=== PATIENT | female | born 1990 | race Caucasian/White ===

== ENCOUNTER 2017-10-18 23:15 | Emergency (ER) | payer OTHER ==
[~2017-10-18] VITALS: Ht 160 cm; Wt 90.7 kg
[~2017-10-18 23:15] MED LIST: AMOXICILLIN250 MG PO; ZOFRAN ODT4 MG PO
[2017-10-18] MEDS ORDERED: IBUPROFEN 600 MG TAB PO STA (23:42)
[2017-10-18] MEDS ORDERED: TRAMADOL HCL 50 MG TAB PO ONE (23:45)
--- NOTE | 2017-10-19 00:42 | Diagnostic Imaging Report ---
SHOULDER RIGHT COMPLETE Comparison: None Clinical history: Shoulder pain Findings: No fracture or dislocation. Impression: No acute bony abnormality Signed by: Dr Vicky Marie MD on 10/19/2017 12:38 AM
[2017-10-19 01:12] VITALS: BP 121/80
== END 2017-10-19 01:22 | disposition home or self-care (01) ==
LOC: ER 23:15
DX: S46.811A Strain of other muscles, fascia and tendons at shoulder and upper arm level, right arm, initial encounter (principal); Y93.89 Activity, other specified
CPT/HCPCS: 99283

== ENCOUNTER 2018-02-05 20:39 | Emergency (ER) | payer OTHER ==
[~2018-02-05] VITALS: Ht 160 cm; Wt 90.7 kg
--- OUTSIDE RECORDS SUMMARY | 2018-02-05 20:41 | XMS REPORT | Clinical Summary ---
Author Author [facility] Address Unknown Phone Unavailable Care Team Providers Care Cue Selector Name Role Phone Gerardo Drew MD PCP Allergies Active Allergy Reactions Severity Noted Date Comments Latex Hives 07/13/2017 Current Medications Prescription Sig. Disp. Refills Start End Date Status Date levETIRAcetam (KEPPRA) Take 250 mg by mouth 2 Active 250 MG tablet (two) times a day. cyclobenzaprine Take 1 tablet (10 mg 21 tablet 0 01/03/20 Active (FLEXERIL) 10 mg tablet total) by mouth 3 (three) 18 times a day as needed for muscle spasms for up to 21 doses. meloxicam (MOBIC) 15 mg Take 1 tablet (15 mg 10 tablet 0 01/03/20 Active tablet total) by mouth daily as 18 needed for moderate pain for up to 10 doses. BUTALB/ACETAMINOPHEN/CAFF Take by mouth. 01/03/20 Discontin EINE (FIORICET ORAL) 18 ued butalbital-acetaminophen- Take 2 tablets by mouth 20 tablet 0 08/13/20 caff (FIORICET, ESGIC) every 8 (eight) hours as 17 17 50-325-40 mg per tablet needed for headaches for up to 30 days. Active Problems Problem Noted Date Headache 07/13/2017 Encounters Date Type Specialty Care Team Description 01/02/2018 Emergency Emergency Medicine Teddy Kong, Strain of neck muscle, PAAva initial encounter (Primary Dx); Concussion without loss of consciousness, initial encounter 07/13/2017 Emergency General Internal Medicine Simón De Guzman Chronic cluster headache, - Albert Alas MD not intractable (Primary 07/14/2017 Mar Gomez MD Dx); Savage Everett MD Headache, unspecified headache type; Episode of change in speech 07/13/2017 Procedure Pass General Internal Medicine 07/13/2017 Procedure Pass General Internal Medicine after 02/04/2017 Social History Tobacco Use Types Packs/Day Years Used Date Current Every Day Smoker Cigarettes 0.5 Smokeless Tobacco: Never Used Alcohol Use Drinks/Week oz/Week Comments No ocass Sex Assigned at Date Recorded Not on file Last Filed Vital Signs Vital Sign Reading Time Taken Blood Pressure 118/77 01/02/2018 8:19 PM CDT Pulse 82 01/02/2018 8:19 PM CDT Temperature 36.9 C (98.4 F) 01/02/2018 8:19 PM CDT Respiratory Rate 17 01/02/2018 8:19 PM CDT Oxygen Saturation 96% 01/02/2018 8:19 PM CDT Inhaled Oxygen - - Concentration Weight 113 kg (250 lb) 01/02/2018 6:54 PM CDT Height 154.9 cm (5' 1") 01/02/2018 6:54 PM CDT Body Mass Index 47.24 01/02/2018 6:54 PM CDT Plan of Treatment Date Type Specialty Care Team Description 02/11/2018 Office Visit Neurology Jenniffer Eucead MD [address] [address] Health Maintenance Due Date Last Done Comments PAP SMEAR 2012 INFLUENZA VACCINE 05/22/2018 Results * CT Cervical Spine Wo Contrast (01/02/2018 7:33 PM) Specimen Performing Laboratory [address] [address] Narrative Procedure:CT CERVICAL SPINE WO CONTRAST REFERRING PHYSICIAN:TEDDY KONG HISTORY:fall COMPARISON: None TECHNIQUE: Multiple helical axial images of the cervical spine. Additional sagittal and coronal reformat images were acquired. All CT scan performed using radiation dose reduction techniques. Technical factors are evaluated and adjusted to ensure appropriate moderation of exposure. Automated dose management technology is applied to adjust the radiation dose to minimize expose whileachieving a diagnostic quality image. FINDINGS: Sagittal evaluation of the cervical spine demonstrates normal alignment cervical vertebrae. The vertebral body heights are maintained. The intervertebral disc spaces are maintained. No articular pillar defect is seen. Prevertebral soft tissue is within normal limits. Axial evaluation of the cervical spine demonstrates no significant central canal stenosis or neuroforaminal narrowing. No fracture is seen. No evidence of paraspinal hematoma. IMPRESSION: No CT evidence acute fracture or subluxation of the cervical spine. [id number] Procedure Note Interface, Radiology Results Incoming - 01/02/2018 7:44 PM CDT Procedure:CT CERVICAL SPINE WO CONTRAST REFERRING PHYSICIAN:TEDDY KONG HISTORY:fall COMPARISON: None TECHNIQUE: Multiple helical axial images of the cervical spine. Additional sagittal and coronal reformat images were acquired. All CT scan performed using radiation dose reduction techniques. Technical factors are evaluated and adjusted to ensure appropriate moderation of exposure. Automated dose management technology is applied to adjust the radiation dose to minimize expose while achieving a diagnostic quality image. FINDINGS: Sagittal evaluation of the cervical spine demonstrates normal alignment cervical vertebrae. The vertebral body heights are maintained. The intervertebral disc spaces are maintained. No articular pillar defect is seen. Prevertebral soft tissue is within normal limits. Axial evaluation of the cervical spine demonstrates no significant central canal stenosis or neuroforaminal narrowing. No fracture is seen. No evidence of paraspinal hematoma. IMPRESSION: No CT evidence acute fracture or subluxation of the cervical spine. [id number] * CT Head Wo Contrast (01/02/2018 7:33 PM) Only the most recent of 2 results within the time period is included. Specimen Performing Laboratory [facility] [address] [place] [address] Narrative Procedure:CT HEAD WO CONTRAST REFERRING PHYSICIAN:TEDDY KONG HISTORY:fall COMPARISON: None TECHNIQUE: Axial images were obtained of the head without intravenous contrast. All CT scan performed using radiation dose reduction techniques. Technical factors are evaluated and adjusted to ensure appropriate moderation of exposure. Automated dose management technology is applied to adjust the radiation dose to minimize expose whileachieving a diagnostic quality image. FINDINGS: Beck-white matter differentiation is maintained. The ventricular system is symmetric and midline. There is no evidence of acute hemorrhage. Nointra-axial or extra-axial lesion is seen. Mild mucosal thickening of the maxillary sinus is noted. The visualized portion of the orbits, paranasal sinuses and mastoid air cells are otherwise unremarkable. The calvarium is intact. IMPRESSION: Unremarkable CT head exam with no CT evidence of acute intracranial abnormality or hemorrhage. [id number] Procedure Note [facility], Radiology Results Incoming - 01/02/2018 7:43 PM CDT Procedure:CT HEAD WO CONTRAST REFERRING PHYSICIAN:TDEDY KONG HISTORY: fall COMPARISON: None TECHNIQUE: Axial images were obtained of the head without intravenous contrast. All CT scan performed using radiation dose reduction techniques. Technical factors are evaluated and adjusted to ensure appropriate moderation of exposure. Automated dose management technology is applied to adjust the radiation dose to minimize expose while achieving a diagnostic quality image. FINDINGS: Beck-white matter differentiation is maintained. The ventricular system is symmetric and midline. There is no evidence of acute hemorrhage. No intra-axial or extra-axial lesion is seen. Mild mucosal thickening of the maxillary sinus is noted. The visualized portion of the orbits, paranasal sinuses and mastoid air cells are otherwise unremarkable. The calvarium is intact. IMPRESSION: Unremarkable CT head exam with no CT evidence of acute intracranial abnormality or hemorrhage. [id number] * hCG qualitative, urine screen (01/02/2018 7:17 PM) Only the most recent of 2 results within the time period is included. Component Value Ref Range hCG qualitative, urine Negative Negative Comment: The manufacturers stated sensitivity of HcG test for serum is >/=10 mIU/ml and urine is >/=20mIU/ml. Specimen Performing Laboratory Urine [facility] DEPARTMENT OF PATHOLOGY AND GENOMIC MEDICINE [address] [place] [address] * Estimated GFR (07/14/2017 5:55 AM) Only the most recent of 2 results within the time period is included. Component Value Ref Range GFR Non Af Amer >90 mL/min/1.73 m2 GFR Af Amer >90 mL/min/1.73 m2 Comment: Chronic kidney disease: <60 mL/min/1.73m2 Kidney failure: <15 mL/min/1.73m2 The estimated GFR is calculated from the IDMS-traceable Modification of Diet in Renal Disease Equation. The accuracy of the calculation is poor when the creatinine is normal. Calculated values >90 mL/min/1.73m2 are not reported. This equation has not been validated in children (<18 years), women, the elderly (>70 years), or ethnic groups other than Caucasians and Americans. Specimen Performing Laboratory Plasma specimen [facility]IC[facility] [address] [place] [address] * Prothrombin time with INR (07/14/2017 5:55 AM) Component Value Ref Range Prothrombin time 13.0 12.0 - 15.0 sec INR 0.98 0.92 - 1.12 Comment: For patients on anticoagulant therapy, reference ranges below: Indication: INR Value Treatment of Venous Thrombosis, 2.0-3.0 pulmonary emboli, or prophylaxis of a venous thrombosis, or systemic emboli. High dose, high risk patients 3.0-4.5 with mechanical valves. NOTE: INR values over 3.0 are sometimes associated with gastrointestinal hemorrhage, especially values over 4.0. Specimen Performing Laboratory Blood [facility] [address] [place] [address] * CBC with platelet and differential (07/14/2017 5:55 AM) Only the most recent of 2 results within the time period is included. Component Value Ref Range WBC 4.4 4.2 - 11.0 k/uL RBC 3.63 (L) 4.04 - 5.86 m/uL HGB 11.6 11.5 - 15.3 g/dL HCT 34.4 34.0 - 45.0 % MCV 94.8 80.0 - 98.0 fL MCH 32.0 27.0 - 34.0 pg MCHC 33.7 31.5 - 36.5 g/dL RDW - SD 44.8 37.0 - 51.0 fL MPV 10.7 (H) 7.4 - 10.4 fL Platelet count 225 150 - 400 k/uL Nucleated RBC 0.00 /100 WBC Neutrophils 35.0 (L) 36.0 - 66.0 % Lymphocytes 51.1 (H) 24.0 - 44.0 % Monocytes 10.0 (H) 0.0 - 6.0 % Eosinophils 3.2 0.0 - 6.0 % Basophils 0.5 0.0 - 1.2 % Immature granulocytes 0.2 0.0 - 1.0 % Specimen Performing Laboratory Blood [facility] [address] [place] [address] * Lipid panel (07/14/2017 5:55 AM) Component Value Ref Range Cholesterol 131 120 - 200 mg/dL Triglycerides 113 50 - 150 mg/dL HDL cholesterol 33 (L) 40 - 60 mg/dL LDL cholesterol 94Comment: Result obtained by direct LDL mg/dL measurement Specimen Performing Laboratory Plasma specimen [facility] [address] [place] [address] * Basic metabolic panel (07/14/2017 5:55 AM) Component Value Ref Range Sodium 140 135 - 150 mEq/L Potassium 4.0 3.5 - 5.0 mEq/L Chloride 107 100 - 109 mEq/L CO2 27 24 - 32 mmol/L Anion gap 6 (L) 7 - 15 mEq/L Comment: Starting from January , anion gap calculation no longer incorporates potassium. Please note the change. BUN 11 7 - 18 mg/dL Creatinine 0.7 (L) 0.8 - 1.5 mg/dL Glucose 93 65 - 100 mg/dL Calcium 8.7 8.6 - 10.7 mg/dL Specimen Performing Laboratory Plasma specimen [facility] [address] [place] [address] * MRA Head Wo Contrast (07/13/2017 5:17 PM) Specimen Performing Laboratory [facility] [address] [place] [address] Narrative EXAMINATION: MRA HEAD WO CONTRAST CLINICAL HISTORY: headache COMPARISON:Brain MRI dated July 13, 2017. TECHNIQUE: [id number] MRA images of the [place] vessels were obtained with multiplanar and 3-D reconstructive algorithms. FINDINGS: Normal flow related signal is detected along the visualized distal cervical, petrous, cavernous and supraclinoid segments of the internal carotid arteries, as well as along the visualized segments of the anterior and middle cerebral arteries. No discrete saccular or fusiform aneurysm formation is seen. The anterior communicating artery is visualized. Normal flow related signal is detected along the visualized distal vertebral arteries, along the basilar artery, and along the posterior cerebral arteries. The right vertebral artery is hypoplastic and the left vertebral artery is dominant. The left posterior cerebral artery has a origin, normal anatomical variant. No discrete saccular or fusiform aneurysm formation is seen. IMPRESSION: Unremarkable MRA of the [place] with no significant abnormality. [id number] Procedure Note Interface, Radiology Results Incoming - 07/13/2017 5:43 PM CDT EXAMINATION: MRA HEAD WO CONTRAST CLINICAL HISTORY: headache COMPARISON: Brain MRI dated July 13, 2017. TECHNIQUE: [id number] MRA images of the [place] vessels were obtained with multiplanar and 3-D reconstructive algorithms. FINDINGS: Normal flow related signal is detected along the visualized distal cervical, petrous, cavernous and supraclinoid segments of the internal carotid arteries, as well as along the visualized segments of the anterior and middle cerebral arteries. No discrete saccular or fusiform aneurysm formation is seen. The anterior communicating artery is visualized. Normal flow related signal is detected along the visualized distal vertebral arteries, along the basilar artery, and along the posterior cerebral arteries. The right vertebral artery is hypoplastic and the left vertebral artery is dominant. The left posterior cerebral artery has a origin, normal anatomical variant. No discrete saccular or fusiform aneurysm formation is seen. IMPRESSION: Unremarkable MRA of the [place] with no significant abnormality. [id number] * MRI Brain W Wo Contrast (07/13/2017 5:15 PM) Specimen Performing Laboratory [facility] [address] [place] [address] Narrative EXAMINATION: MRI BRAIN W WO CONTRAST CLINICAL HISTORY: headache COMPARISON:None TECHNIQUE: Multiplanar and multisequence MRI imaging of the brain was obtained with and without contrast. FINDINGS: No evidence of acute intracranial hemorhage, mass, mass effect, acute infarct or midline shift. Ventricles and sulci are normal in appearance for patient's age. No abnormal intracranial enhancement. No abnormal susceptibility. Basal cisterns are clear. Major intracranial flow voids are maintained. Orbits are normal in appearance. Visualized paranasal sinuses and mastoid air cells are clear. IMPRESSION: Normal MRI of the brain. [id number] Procedure Note Interface, Radiology Results [facility] - 07/13/2017 5:33 PM CDT EXAMINATION: MRI BRAIN W WO CONTRAST CLINICAL HISTORY: headache COMPARISON: None TECHNIQUE: Multiplanar and multisequence MRI imaging of the brain was obtained with and without contrast. FINDINGS: No evidence of acute intracranial hemorhage, mass, mass effect, acute infarct or midline shift. Ventricles and sulci are normal in appearance for patient's age. No abnormal intracranial enhancement. No abnormal susceptibility. Basal cisterns are clear. Major intracranial flow voids are maintained. Orbits are normal in appearance. Visualized paranasal sinuses and mastoid air cells are clear. IMPRESSION: Normal MRI of the brain. [id number] * Urinalysis screen and microscopy, with reflex to culture (07/13/2017 5:45 AM) Component Value Ref Range Specimen site Clean catch Color, UA Yellow Appearance, UA Clear Specific gravity, UA 1.006 1.001 - 1.035 pH, UA 6.0 5.0 - 8.5 Protein, UA Negative Negative Glucose, UA Negative Negative Ketones, UA Negative Negative Bilirubin, UA Negative Negative Blood, UA Trace (A) Negative Nitrite, UA Negative Negative Urobilinogen, UA Negative <2.0 Leukocyte esterase, UA Trace (A) Negative Epithelial cells, UA Many /HPF WBC, UA 3 0 - 5 /HPF RBC, UA 1 0 - 5 /HPF Bacteria, UA Trace None seen Yeast, UA None seen Yeast with pseudohyphae, None seen UA Specimen Performing Laboratory Urine [facility] [address] [place] [address] * Urine drugs of abuse screen (07/13/2017 5:45 AM) Component Value Ref Range Amphetamine screen, urine NEG Barbiturate screen, urine NEG Benzodiazepine screen, NEG urine Cocaine screen, urine NEG Methadone screen, urine NEG Opiates screen, urine NEG Phencyclidine screen, NEG urine Cannabinoid screen, urine NEG Comment: Drug screen minimum concentration of detectability Amphetamines 1000 ng/mL Methamphetamines 1000 ng/mL Barbiturates 300 ng/mL Benzodiazepines 300 ng/mL Cocaine 300 ng/mL Methadone 3 00 ng/mL Opiates 300 ng/mL Phencyclidine 25 ng/mL Cannabinoids 50 ng/mL Tricyclics 1000 ng/mL Negative test results indicates presumptive evidence of lack of clinically significant drug concentration in this urine specimen. Positive test results are presumptive evidence of clinically significant drug concentration in this urine specimen. Testing performed for medical purposes only. Specimen Performing Laboratory Urine [facility] [address] [place] [address] * Gram stain (07/13/2017 5:45 AM) Component Value Ref Range Gram stain result No WBC's Many Gram positive rods Comment: Specimen Information Specimen Source: Urine Specimen Site: Clean catch Specimen Performing Laboratory Urine [facility] DEPARTMENT OF PATHOLOGY AND GENOMIC MEDICINE [address] [place] [address] * Urine culture (07/13/2017 5:45 AM) Component Value Ref Range Urine culture isolate Mixed Gram positive mimi 10-4 cfu/ml (A) Comment: Specimen Information Specimen Source: Urine Specimen Site: Clean catch Specimen Performing Laboratory Urine [facility] DEPARTMENT OF PATHOLOGY AND GENOMIC MEDICINE [address] [place] [address] * Comprehensive metabolic panel (07/13/2017 3:43 AM) Component Value Ref Range Sodium 139 135 - 150 mEq/L Potassium 3.7 3.5 - 5.0 mEq/L Chloride 105 100 - 109 mEq/L CO2 28 24 - 32 mmol/L Anion gap 6 (L) 7 - 15 mEq/L Comment: Starting from January , anion gap calculation no longer incorporates potassium. Please note the change. BUN 5 (L) 7 - 18 mg/dL Creatinine 0.7 (L) 0.8 - 1.5 mg/dL Glucose 93 65 - 100 mg/dL Calcium 9.1 8.6 - 10.7 mg/dL Protein 7.6 6.3 - 8.2 g/dL Albumin 3.6 3.2 - 5.0 g/dL A/G ratio 0.9 0.7 - 3.8 Alkaline phosphatase 77 30 - 120 U/L AST 9 (L) 15 - 37 U/L ALT 18 (L) 30 - 65 U/L Total bilirubin 0.4 0.2 - 1.2 mg/dL Specimen Performing Laboratory Plasma specimen [facility] [address] [place] [address] after 02/04/2017 Insurance Payer Benefit Subscriber ID Type Phone Address Plan / Group [facility] xxxxxxxxx HMO/PPO THCARE CHOICE/CHO ICE + Home:
--- OUTSIDE RECORDS SUMMARY | 2018-02-05 20:42 | XMS REPORT ---
[facility] Address Unknown Phone Unavailable Care Team Providers Care Bobcat Operator Name Role Phone TG GRANADOS Unavailable Unavailable Problems This patient has no known problems. Allergies, Adverse Reactions, Alerts This patient has no known allergies or adverse reactions. Medications This patient has no known medications. Results Test Description Test Time Test Comments Text Results Atomic Results Result Comments SHOULDER RIGHT COMPLETE [place] [address] Patient Name: TEDDY COLLINS MR #: [id number] : 1990 Age/Sex: 27/F Req #: [id number] Adm Physician: Ordered by: TG GRANADOS MD Report #: [id number] Location: ER Room/Bed: ___ Procedure: [id number] DX/SHOULDER RIGHT COMPLETE Exam Date: 10/18/17 Exam Time: 2359 REPORT STATUS: Signed SHOULDER RIGHT COMPLETE Comparison: None Clinical history: Shoulder pain Findings: No fracture or dislocation. Impression: No acute bony abnormality Signed by: Dr Ashok Marie MD on 10/19/2017 12:38 AM Dictated By: ASHOK MARIE MD Transcribed By: CARL on 10/19/1737 COPY TO: TG GRANADOS MD
[2018-02-05 22:48] LABS: BASOPHILS % 0.1 % (0.0-1.0); HEMATOCRIT 38.9 % (34.2-44.1); HEMOGLOBIN 13.6 g/dL (12.0-16.0); LYMPHOCYTES # (AUTO) 1.6 (1.0-3.2); LYMPHOCYTES % 11.6 % (18.0-39.1); MEAN CORPUSCULAR HEMOGLOBIN 31.7 pg (28-32); MEAN CORPUSCULAR VOLUME 90.7 fL (81-99); MONOCYTES # (AUTO) 0.4 (0.2-0.8); MONOCYTES % 2.6 % (4.4-11.3); NEUTROPHILS # (AUTO) 11.8 (2.1-6.9); NEUTROPHILS % 85.1 % (38.7-80.0); PLATELET COUNT 306 x10e3/uL (140-360); RED BLOOD COUNT 4.29 x10e6/uL (3.6-5.1); RED CELL DISTRIBUTION WIDTH 12.3 % (11.7-14.4)
[2018-02-05 23:01] LABS: ANION GAP 15.4 mmol/L (8-16); BLOOD UREA NITROGEN 7 mg/dL (7-26); BUN/CREATININE RATIO 9 (6-25); CALCIUM 10.1 mg/dL (8.4-10.2); CARBON DIOXIDE 24 mmol/L (22-29); CHLORIDE 106 mmol/L (98-107); CREATININE, SERUM 0.81 mg/dL (0.57-1.11); EST GLOMERULAR FILTRATION RATE > 60 ML/MIN (60-); GLUCOSE 121 mg/dL (74-118); POTASSIUM 4.4 mmol/L (3.5-5.1); SODIUM 141 mmol/L (136-145)
[2018-02-05] MEDS ORDERED: IOPAMIDOL 370 MG/ML 200 ML INFUS..BTL INJ ONE (23:16)
[2018-02-05] MEDS ORDERED: SODIUM CHLORIDE 0.9% 50ML 50 ML ONE (23:16)
--- NOTE | 2018-02-05 23:58 | Diagnostic Imaging Report ---
Examination:CT SOFT TISSUE NECK WITH CONTRAST History: Throat pain and swelling. Comparison studies: None Technique: Axial images from the skull base to the thoracic inlet Coronal and sagittal reformatted images. Intravenous contrast: 100mL of Isovue 370. Findings: Soft tissues: No abnormalities. Aerodigestive tract: No abnormality. Lymph nodes: No radiographically significant adenopathy. Vessels: Arteries and veins are patent. Thyroid gland: Normal in size and homogeneous. Submandibular glands: Normal in size and homogeneous. Parotid glands: Normal in size and homogeneous. Orbits: No abnormalities. Paranasal sinuses: Clear. Temporal bones: No abnormalities. Skull base and facial bones: Intact. Cervical spine: No disc bulge or herniation or foraminal or canal stenosis. IMPRESSION: No abnormalities. Signed by: Dr. Marie Vail M.D. on 02/05/2018 11:55 PM
[2018-02-06 00:23] VITALS: BP 125/75
== END 2018-02-06 00:20 | disposition home or self-care (01) ==
LOC: ER 20:39
DX: J02.9 Acute pharyngitis, unspecified (principal)
CPT/HCPCS: 36415; 70491; 80048; 84702; 85025; 99283; Q9967

== ENCOUNTER 2020-04-29 18:41 | Emergency (ER) | payer OTHER ==
[~2020-04-29] VITALS: Ht 160 cm; Wt 90.7 kg
--- NOTE | 2020-04-29 20:03 | Emergency Department Note ---
History of Present Illnes History of Present Illness Chief Complaint: Eye, Ear, Nose, Throat, Dental History of Present Illness This is a 29 year old female C/O SORE THROAT AND COUGH X3 DAYS. pt denies fever, denies sob . Historian: Patient Arrival Mode: Car Onset (how long ago): day(s) (3) Location: throat Quality: pain Radiation: Reports non-radiation Severity: moderate Onset quality: gradual Duration (how long): day(s) (3) Timing of current episode: constant Progression: worsening Chronicity: new Context: Denies recent illness Relieving factors: none Exacerbating factors: other (swallowing) Associated symptoms: Reports cough (for 3 days), Reports other (loss of voice) Treatments prior to arrival: none Past Medical/Family History Physician Review I have reviewed the patient's past medical and family history. Any updates have been documented here. Past Medical History Recent Fever: No Clinical Suspicion of Infectio: No New/Unexplained Change in Ment: No Past Medical History: Seizure Disorder Other Medical History: OVARIAN CYST Other Surgery: LEFT KNEE SX X2 Social History Smoking Cessation: Never Smoker Alcohol Use: None Any Illegal Drug Use: No Family History Family history of heart diseas: No Other Last Tetanus: UTD Review of Systems Review of Systems Constitutional: Reports no symptoms EENTM: Reports as per HPI Cardiovascular: Reports no symptoms Gastrointestinal: Reports no symptoms Genitourinary: Reports no symptoms Musculoskeletal: Reports no symptoms Integumentary: Reports no symptoms Neurological: Reports no symptoms Psychological: Reports no symptoms Endocrine: Reports no symptoms Hematological/Lymphatic: Reports no symptoms Physical Exam Related Data Allergies: Coded Allergies: latex (Verified Allergy, Intermediate, 02/05/18) aspirin (Verified Allergy, Unknown, 04/29/20) Triage Vital Signs Vital Signs Date Time Temp Pulse Resp B/P (MAP) Pulse Ox O2 Delivery O2 Flow Rate FiO2 04/29/20 19:52 98.6 89 18 102/64 96 Room Air Vital signs reviewed: Yes Physical Exam CONSTITUTIONAL Constitutional: Present well-developed, Present well-nourished HENT HENT: Present normocephalic, Present atraumatic, Present oropharynx tammy ar/moist, Present nose normal, Present oropharyngeal exudate, Present erythema (to posterior oropharynx ) HENT L/R: Present left ext ear normal, Present right ext ear normal EYES Eyes: Reports PERRL, Reports conjunctivae normal NECK Neck: Present ROM normal PULMONARY Pulmonary: Present effort normal, Present other (slight decrease in breath sounds to right lower lobe.) CARDIOVASCULAR Cardiovascular: Present regular rhythm, Present heart sounds normal, Present capillary refill normal, Present normal rate GASTROINTESTINAL Abdominal: Present soft, Present nontender, Present bowel sounds normal GENITOURINARY Genitourinary: Present exam deferred SKIN Skin: Present warm, Present dry MUSCULOSKELETAL Musculoskeletal: Present ROM normal NEUROLOGICAL Neurological: Present alert, Present oriented x 3, Present no gross motor or sensory deficits PSYCHOLOGICAL Psychological: Present mood/affect normal, Present judgement normal Results Imaging Imaging results reviewed: Yes Impressions rocedure: [id number] DX/CHEST SINGLE (PORTABLE) Exam Date: 04/29/20 Exam Time: 2024 REPORT STATUS: Signed EXAM: CHEST SINGLE (PORTABLE), DATE: 04/29/2020 8:25 PM INDICATION: Pain. COMPARISON: None FINDINGS: Support devices: None. Lungs/pleura: No focal consolidation, pleural effusion or pneumothorax. There is bibasilar atelectasis. Heart and mediastinum: Within normal limits. IMPRESSION: No radiographic evidence an acute cardiopulmonary process. The image was reviewed by Kinga Sy MD Signed by: Kinga Sy MD on 04/29/2020 9:08 PM Dictated By: KINGA SY MD 07 Transcribed By: CARL on 04/29/202107 Assessment & Plan Medical Decision Making MDM pt with exudative tonsillitis, and cough cxr odored to eval for pneumonia. PT DISCHARGED WITH AUGMENTIN 875 ONE PO BID FOR 14 DAYS MEDROL DOSE PACK Reassessment Reassessment time: 21:23 Reassessment PT'S SYMPTOMS UNCHANGED, REVIEWED XRAY RESULTS WITH PT Assessment & Plan Final Impression: (1) Exudative tonsillitis Depart Disposition: HOME, SELF-CARE Last Vital Signs Date Time Temp Pulse Resp B/P (MAP) Pulse Ox O2 Delivery O2 Flow Rate FiO2 04/29/20 19:52 98.6 89 18 102/64 96 Room Air Home Meds Unable to Obtain Active Prescriptions or Reported Meds TG GRANADOS MD Apr 29, 2020 20:02
--- NOTE | 2020-04-29 21:12 | Diagnostic Imaging Report ---
EXAM: CHEST SINGLE (PORTABLE), DATE: 04/29/2020 8:25 PM INDICATION: Pain. COMPARISON: None FINDINGS: Support devices: None. Lungs/pleura: No focal consolidation, pleural effusion or pneumothorax. There is bibasilar atelectasis. Heart and mediastinum: Within normal limits. IMPRESSION: No radiographic evidence an acute cardiopulmonary process. The image was reviewed by José Miguel Michael MD Signed by: José Miguel Michael MD on 04/29/2020 9:08 PM
== END 2020-04-29 21:42 | disposition home or self-care (01) ==
LOC: ER 19:58
DX: J03.90 Acute tonsillitis, unspecified (principal); R05 Cough; G40.909 Epilepsy, unspecified, not intractable, without status epilepticus
CPT/HCPCS: 71045; 99283

== ENCOUNTER 2020-08-18 10:22 | Emergency (ER) | payer OTHER ==
[~2020-08-18] VITALS: Ht 160 cm; Wt 81.6 kg
[2020-08-18] MEDS ORDERED: ONDANSETRON HCL INJ 2MG/ML 2ML 2 MG/ML VIAL IV STA (10:50)
[2020-08-18] MEDS ORDERED: PANTOPRAZOLE 40 MG 10ML VIAL IV STA (10:50)
[2020-08-18] MEDS ORDERED: SODIUM CHLORIDE 0.9% 1000ML 1,000 ML IV STA (10:50)
--- NOTE | 2020-08-18 11:19 | Diagnostic Imaging Report ---
EXAM: CHEST SINGLE (PORTABLE) DATE: 08/18/2020 10:55 AM INDICATION: Fever, chills COMPARISON: None FINDINGS: The trachea is midline. The lungs are symmetrically expanded without evidence for large focal consolidation, pneumothorax, or significant pleural effusion. The cardiomediastinal silhouette and pulmonary vasculature are within normal limits. No acute osseous abnormality is identified. The surrounding soft tissues are unremarkable. IMPRESSION: No acute cardiopulmonary process identified. Signed by: Dr. Bud Navarro MD on 08/18/2020 11:16 AM
[2020-08-18 11:37] LABS: BASOPHILS % 0.5 % (0.0-1.0); EOSINOPHILS # (AUTO) 0.1 (0.0-0.4); EOSINOPHILS % 1.9 % (0.0-6.0); HEMATOCRIT 38.7 % (34.2-44.1); HEMOGLOBIN 13.3 g/dL (12.0-16.0); LYMPHOCYTES # (AUTO) 1.8 (1.0-3.2); LYMPHOCYTES % 27.7 % (18.0-39.1); MEAN CORPUSCULAR HEMOGLOBIN 32.1 pg (28-32); MEAN CORPUSCULAR HGB CONC 34.4 g/dL (31-35); MEAN CORPUSCULAR VOLUME 93.5 fL (81-99); MONOCYTES # (AUTO) 0.5 (0.2-0.8); MONOCYTES % 8.5 % (4.4-11.3); NEUTROPHILS # (AUTO) 3.9 (2.1-6.9); NEUTROPHILS % 61.2 % (38.7-80.0); PLATELET COUNT 247 x10e3/uL (140-360); RED BLOOD COUNT 4.14 x10e6/uL (3.6-5.1); RED CELL DISTRIBUTION WIDTH 12.9 % (11.7-14.4)
[2020-08-18 11:48] LABS: BILIRUBIN,URINE NEGATIVE (NEGATIVE); CLARITY,URINE CLEAR (CLEAR); COLOR,URINE YELLOW (YELLOW); KETONES,URINE NEGATIVE (NEGATIVE); LEUKOCYTE ESTERASE ,URINE TRACE (NEGATIVE); NITRITE,URINE NEGATIVE (NEGATIVE); PROTEIN,URINE DIPSTICK NEGATIVE (NEGATIVE); URINE UROBILINOGEN 0.2 mg/dL (0.2 - 1)
[2020-08-18 11:49] LABS: PREGNANCY TEST, URINE NEGATIVE (NEGATIVE)
[2020-08-18 11:57] LABS: BACTERIA,URINE FEW /HPF; EPITHELIAL CELLS,URINE MODERATE /LPF; RBC,URINE 0-5 /HPF (0-5)
[2020-08-18 11:58] LABS: ALANINE AMINOTRANSFERASE 13 IU/L (0-55); ALBUMIN/GLOBULIN RATIO 1.3 (0.8-2.0); ALKALINE PHOSPHATASE 66 IU/L (40-150); ANION GAP 12.6 mmol/L (8-16); BLOOD UREA NITROGEN 10 mg/dL (7-26); BUN/CREATININE RATIO 14 (6-25); CALCIUM 9.3 mg/dL (8.4-10.2); CARBON DIOXIDE 25 mmol/L (22-29); CHLORIDE 104 mmol/L (98-107); CREATININE, SERUM 0.73 mg/dL (0.57-1.11); EST GLOMERULAR FILTRATION RATE > 60 ML/MIN (60-); GLUCOSE 82 mg/dL (74-118); LIPASE 12 U/L (8-78); MAGNESIUM 1.9 MG/DL (1.3-2.1); POTASSIUM 3.6 mmol/L (3.5-5.1); SODIUM 138 mmol/L (136-145)
--- NOTE | 2020-08-18 12:56 | Diagnostic Imaging Report ---
CT of the abdomen and pelvis, with contrast. History: Abdominal pain, nausea, vomiting, diarrhea. Comparison: CT abdomen/pelvis from 05/30/2015. Technique: Multidetector CT scanning of the abdomen and pelvis was performed from the level of the lung bases to the inferior pubic rami after intravenous administration of contrast. Coronal and sagittal multiplanar reformations were obtained. RADIATION DOSE: Total DLP: 750.18 mGy*cm Dose modulation, iterative reconstruction, and/or weight based adjustment of the mA/kV was utilized to reduce the radiation dose to as low as reasonably achievable. FINDINGS: The visualized intrathoracic contents demonstrate no significant abnormalities. The liver is normal in size and attenuation without evidence for focal abnormality. The gallbladder appears contracted but otherwise unremarkable. The stomach, spleen, pancreas, and bilateral adrenal glands are unremarkable. Incidentally noted is a splenule adjacent to the spleen. The kidneys are normal in size and location and enhance symmetrically. There is no evidence for nephrolithiasis or hydronephrosis. No ureteral stone or dilatation is appreciated. The urinary bladder demonstrates no significant abnormalities. The uterus and adnexa are grossly unremarkable. A trace amount of free fluid is noted within the pelvis, likely physiologic in this premenopausal patient. The abdominal aorta is normal in course and caliber. The IVC appears unremarkable. The portal venous system, SMV, splenic vein are patent. Please note evaluation of bowel is limited without the use of enteric contrast material. There is mild wall thickening of the transverse and descending colon without significant adjacent inflammatory change. The remaining visualized loops of small large bowel demonstrate no evidence of obstruction or inflammation. There is no ascites or intraperitoneal free air. No abnormally enlarged lymph nodes are identified in the abdomen or pelvis. The osseous structures demonstrate no evidence for acute fracture or destructive process. The extracranial soft tissues are unremarkable. IMPRESSION: Mild wall thickening noted of the transverse and descending colon which may reflect underdistention. A colitis could have a similar appearance. No evidence for bowel obstruction or perforation. No other acute abdominal pelvic process identified. Signed by: Dr. Bud Navarro MD on 08/18/2020 12:53 PM
[2020-08-18] MEDS ORDERED: IOPAMIDOL 370 MG/ML 200 ML INFUS..BTL INJ ONE (13:15)
[2020-08-18] MEDS ORDERED: SODIUM CHLORIDE 0.9% 50ML 50 ML ONE (13:15)
--- NOTE | 2020-08-18 13:35 | Emergency Department Note ---
History of Present Illnes History of Present Illness Chief Complaint: Abdominal Complaints History of Present Illness This is a 30 year old female PATIENT IN FROM HOME WITH COMPLAINTS OF NAUSEA, VOMITING, DIARRHEA, COUGH, AND FEVER X 2 DAYS; RATES PAIN 5/10 GENERALIZED BODY ACHES. PATIENT ALERT AND ORIENTED, RESP EVEN AND NONLABORED, APPEARS IN NO DISTRESS. 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 Any updates have been documented here. Past Medical History Recent Fever: Yes Clinical Suspicion of Infectio: Yes New/Unexplained Change in Ment: No Past Medical History: Seizure Disorder Other Medical History: OVARIAN CYST Other Surgery: LEFT KNEE SX X2 Social History Smoking Cessation: Current some day smoker Counseling Performed: Yes Alcohol Use: Occasional Any Illegal Drug Use: No TB Exposure/Symptoms: No Physically hurt or threatened: No Family History Family history of heart diseas: No Other Last Tetanus: UTD Any Pre-Existing Lines (PICC,: No Review of Systems Review of Systems Constitutional: Reports no symptoms EENTM: Reports no symptoms Cardiovascular: Reports no symptoms Respiratory: Reports no symptoms Gastrointestinal: Reports as per HPI Genitourinary: Reports no symptoms Musculoskeletal: Reports no symptoms Integumentary: Reports no symptoms Neurological: Reports no symptoms Psychological: Reports no symptoms Endocrine: Reports no symptoms Hematological/Lymphatic: Reports no symptoms Physical Exam Related Data Allergies: Coded Allergies: latex (Verified Allergy, Intermediate, 08/18/20) aspirin (Verified Allergy, Unknown, 08/18/20) Triage Vital Signs Vital Signs Date Time Temp Pulse Resp B/P (MAP) Pulse Ox O2 Delivery O2 Flow Rate FiO2 08/18/20 10:44 98.6 110 24 134/86 100 Room Air Vital signs reviewed: Yes Physical Exam CONSTITUTIONAL Constitutional: Present well-developed, Present well-nourished HENT HENT: Present normocephalic, Present atraumatic, Present mucosae dry, Present nose normal, Present pharynx abnormal (MILD ERYTHEMA WITHOUT EXUDATE) HENT L/R: Present left ext ear normal, Present right ext ear normal EYES Eyes: Reports PERRL, Reports conjunctivae normal NECK Neck: Present ROM normal PULMONARY Pulmonary: Present effort normal, Present breath sounds normal CARDIOVASCULAR Cardiovascular: Present regular rhythm, Present heart sounds normal, Present capillary refill normal, Present normal rate GASTROINTESTINAL Abdominal: Present soft, Present bowel sounds normal, Present tender (MILD DIFFUSE TTP WITHOUT R/G); Absent guarding, Absent rebound GENITOURINARY Genitourinary: Present exam deferred SKIN Skin: Present warm, Present dry MUSCULOSKELETAL Musculoskeletal: Present ROM normal NEUROLOGICAL Neurological: Present alert, Present oriented x 3, Present no gross motor or sensory deficits PSYCHOLOGICAL Psychological: Present mood/affect normal, Present judgement normal Results Laboratory Result Diagram: 08/18/20 1115 08/18/20 1115 Laboratory Laboratory Tests Test 08/18/20 11:41 08/18/20 11:19 08/18/20 11:15 Group A Streptococcus Screen Negative (NEGATIVE) Urine Color Yellow (YELLOW) Urine Clarity Clear (CLEAR) Urine pH 8 (5 - 7) Urine Specific [place] 1.020 (1.010-1.025) Urine Protein Negative (NEGATIVE) Urine Glucose (UA) Negative (NEGATIVE) Urine Ketones Negative (NEGATIVE) Urine Blood Negative (NEGATIVE) Urine Nitrite Negative (NEGATIVE) Urine Bilirubin Negative (NEGATIVE) Urine Urobilinogen 0.2 mg/dL (0.2 - 1) Urine Leukocyte Esterase Trace (NEGATIVE) Urine RBC 0-5 /HPF (0-5) Urine WBC 6-10 /HPF (0-5) Urine Epithelial Cells Moderate /LPF (NONE) Urine Bacteria Few /HPF (NONE) Urine Test Negative (NEGATIVE) White Blood Count 6.35 x10e3/uL (4.8-10.8) Red Blood Count 4.14 x10e6/uL (3.6-5.1) Hemoglobin 13.3 g/dL (12.0-16.0) Hematocrit 38.7 % (34.2-44.1) Mean Corpuscular Volume 93.5 fL (81-99) Mean Corpuscular Hemoglobin 32.1 pg (28-32) Mean Corpuscular Hemoglobin Concent 34.4 g/dL (31-35) Red Cell Distribution Width 12.9 % (11.7-14.4) Platelet Count 247 x10e3/uL (140-360) Neutrophils (%) (Auto) 61.2 % (38.7-80.0) Lymphocytes (%) (Auto) 27.7 % (18.0-39.1) Monocytes (%) (Auto) 8.5 % (4.4-11.3) Eosinophils (%) (Auto) 1.9 % (0.0-6.0) Basophils (%) (Auto) 0.5 % (0.0-1.0) Neutrophils # (Auto) 3.9 (2.1-6.9) Lymphocytes # (Auto) 1.8 (1.0-3.2) Monocytes # (Auto) 0.5 (0.2-0.8) Eosinophils # (Auto) 0.1 (0.0-0.4) Basophils # (Auto) 0.0 (0.0-0.1) Absolute Immature Granulocyte (auto 0.01 x10e3/uL (0-0.1) Sodium Level 138 mmol/L (136-145) Potassium Level 3.6 mmol/L (3.5-5.1) Chloride Level 104 mmol/L (98-107) Carbon Dioxide Level 25 mmol/L (22-29) Anion Gap 12.6 mmol/L (8-16) Blood Urea Nitrogen 10 mg/dL (7-26) Creatinine 0.73 mg/dL (0.57-1.11) Estimat Glomerular Filtration Rate > 60 ML/MIN (60-) BUN/Creatinine Ratio 14 (6-25) Glucose Level 82 mg/dL (74-118) Calcium Level 9.3 mg/dL (8.4-10.2) Magnesium Level 1.9 MG/DL (1.3-2.1) Total Bilirubin 0.2 mg/dL (0.2-1.2) Aspartate Amino Transf (AST/SGOT) 15 IU/L (5-34) Alanine Aminotransferase (ALT/SGPT) 13 IU/L (0-55) Alkaline Phosphatase 66 IU/L (40-150) Total Protein 7.1 g/dL (6.5-8.1) Albumin 4.0 g/dL (3.5-5.0) Globulin 3.1 g/dL (2.3-3.5) Albumin/Globulin Ratio 1.3 (0.8-2.0) Lipase 12 U/L (8-78) Influenza Virus Types A,B Antigen Negative (NEGATIVE) Lab results reviewed: Yes Imaging Imaging results reviewed: Yes Impressions CT of the abdomen and pelvis, with contrast. History: Abdominal pain, nausea, vomiting, diarrhea. Comparison: CT abdomen/pelvis from 05/30/2015. Technique: Multidetector CT scanning of the abdomen and pelvis was performed from the level of the lung bases to the inferior pubic rami after intravenous administration of contrast. Coronal and sagittal multiplanar reformations were obtained. RADIATION DOSE: Total DLP: 750.18 mGy*cm Dose modulation, iterative reconstruction, and/or weight based adjustment of the mA/kV was utilized to reduce the radiation dose to as low as reasonably achievable. FINDINGS: The visualized intrathoracic contents demonstrate no significant abnormalities. The liver is normal in size and attenuation without evidence for focal abnormality. The gallbladder appears contracted but otherwise unremarkable. The stomach, spleen, pancreas, and bilateral adrenal glands are unremarkable. Incidentally noted is a splenule adjacent to the spleen. The kidneys are normal in size and location and enhance symmetrically. There is no evidence for nephrolithiasis or hydronephrosis. No ureteral stone or dilatation is appreciated. The urinary bladder demonstrates no significant abnormalities. The uterus and adnexa are grossly unremarkable. A trace amount of free fluid is noted within the pelvis, likely physiologic in this premenopausal patient. The abdominal aorta is normal in course and caliber. The IVC appears unremarkable. The portal venous system, SMV, splenic vein are patent. Please note evaluation of bowel is limited without the use of enteric contrast material. There is mild wall thickening of the transverse and descending colon without significant adjacent inflammatory change. The remaining visualized loops of small large bowel demonstrate no evidence of obstruction or inflammation. There is no ascites or intraperitoneal free air. No abnormally enlarged lymph nodes are identified in the abdomen or pelvis. The osseous structures demonstrate no evidence for acute fracture or destructive process. The extracranial soft tissues are unremarkable. IMPRESSION: Mild wall thickening noted of the transverse and descending colon which may reflect underdistention. A colitis could have a similar appearance. No evidence for bowel obstruction or perforation. No other acute abdominal pelvic process identified. Signed by: Dr. Bud Navarro MD on 08/18/2020 12:53 PM Assessment & Plan Medical Decision Making MDM F/C, SORE THROAT, N/V/D AND ABD PAIN - CBC, CHEM, GENOVEVA/LIP, UA/CX, STREP/FLU/COVID SWAB, CT ABD/PELVIS - R/O PANCREATITIS, CHOLECYSTITIS, COLITIS, GASTROENTERITIS, FLU, STREP, COVID19 Reassessment Reassessment DC HOME, ZOFRAN ODT, BENTYL, CEFTIN, PUSH PO FLUIDS, F/U PCP, RTED PRN Assessment & Plan Final Impression: (1) Gastroenteritis (2) UTI (urinary tract infection) Depart Disposition: HOME, SELF-CARE Last Vital Signs Date Time Temp Pulse Resp B/P (MAP) Pulse Ox O2 Delivery O2 Flow Rate FiO2 08/18/20 12:45 81 14 111/64 100 08/18/20 10:44 98.6 Room Air Home Meds Unable to Obtain Active Prescriptions or Reported Meds Medications in the ED Pantoprazole Sodium 40 mg ONCE STAT IV Last administered on 08/18/20at 11:46; Admin Dose 40 MG; Start 08/18/20 at 10:50; Stop 08/18/20 at 11:06; Status DC Ondansetron HCl 4 mg ONCE STAT IV Last administered on 08/18/20at 11:46; Admin Dose 4 MG; Start 08/18/20 at 10:50; Stop 08/18/20 at 11:06; Status DC Sodium Chloride 1,000 ml @ 0 mls/hr Q0M STAT IV Last administered on 08/18/20at 11:46; Admin Dose 1,000 MLS/HR; Start 08/18/20 at 10:50; Stop 08/18/20 at 10:54; Status DC Sodium Chloride 50 ml @ ud STK-MED ONCE .ROUTE ; Start 08/18/20 at 13:15; Stop 08/18/20 at 13:08; Status DC Iopamidol 74,000 mg STK-MED ONCE INJ ; Start 08/18/20 at 13:15; Stop 08/18/20 at 13:09; Status DC RAINE BEYER MD Aug 18, 2020 13:35
== END 2020-08-18 13:51 | disposition home or self-care (01) ==
LOC: ER 10:45
DX: R11.2 Nausea with vomiting, unspecified (principal); K52.9 Noninfective gastroenteritis and colitis, unspecified; N39.0 Urinary tract infection, site not specified; R10.84 Generalized abdominal pain; G40.909 Epilepsy, unspecified, not intractable, without status epilepticus; F17.210 Nicotine dependence, cigarettes, uncomplicated
CPT/HCPCS: 36415; 71045; 74177; 80053; 81001; 81025; 83518; 83690; 83735; 85025; 87070; 87086; 87400; 99284; C9113; J2405; J7030; Q9967; U0002